=== PATIENT | male | born 1970 | race Caucasian/White ===

== ENCOUNTER → 2019-06-11 | Outpatient (CLI) | payer OTHER ==
[2019-06-11 15:13] LABS: HEMATOCRIT 45.4 % (42.0-52.0); HEMOGLOBIN 15.5 g/dl (14.0-18.0); MEAN CELL VOLUME 93.6 fl (80.0-94.0); MEAN CORPUSCULAR HGB CONC 34.1 g/dl (33.0-37.0); MEAN PLATELET VOLUME 10.1 fl (9.6-12.3); RED BLOOD COUNT 4.85 10*6/uL (4.50-5.90); RED CELL DISTRI WIDTH 12.5 % (0-14.5); WHITE BLOOD COUNT 10.1 10*3/uL (4.8-10.8)
[2019-06-11 15:44] LABS: ALBUMIN 3.8 gm/dl (3.1-4.5); ALKALINE PHOSPHATASE 80 U/L (45-117); BUN 15 mg/dl (7-24); CHLORIDE 107 mmol/L (98-107); CHOLESTEROL 204 mg/dL (<200); CREATININE 1.02 mg/dL (0.70-1.30); GAMMA GLUTAMYL TRANSPEPTIDASE 42 U/L (15-85); HDL CHOLESTEROL 42 mg/dl (40-60); LDL CHOLESTEROL 121 mg/dL (9-159); SGOT/AST 14 IU/L (3-35); SGPT/ALT 31 U/L (12-78); SODIUM 140 mmol/L (136-145); TOTAL PROTEIN 7.1 gm/dL (6.4-8.2); TRIGLYCERIDES 207 mg/dl (<150); VLDL CHOLESTEROL 41 mg/dL (6-40)
[2019-06-11 15:52] LABS: VITAMIN D, 25-HYDROXY 16.7 ng/mL (30-100)
== END | disposition home or self-care (01) ==
LOC: LAB 14:47
PROVIDERS: Family Medicine
DX: R05 Cough (principal); E78.00 Pure hypercholesterolemia, unspecified; E55.9 Vitamin D deficiency, unspecified; G57.81 Other specified mononeuropathies of right lower limb; F17.200 Nicotine dependence, unspecified, uncomplicated